=== PATIENT | male | born 1970 | race Caucasian/White ===

== ENCOUNTER 2023-06-02 13:36 | Emergency (ER) | payer MEDICAID ==
[2023-06-02 13:58] VITALS: TEMP 98
[2023-06-02] MEDS ORDERED: solu-MEDROL ONE (14:14)
[2023-06-02] MEDS ORDERED: Sterile H2O 10 ml IJ ONE (14:14)
[2023-06-02] MEDS: solu-MEDROL 125 MG, Sterile H2O 10 ml 2 ML IV ONE (14:15)
--- NOTE | 2023-06-02 14:16 | ERPHSYRPT ---
- History of Present Illness Time Seen by Provider: 06/02/23 13:40 Source: patient Exam Limitations: no limitations Patient Subjective Stated Complaint: C/O cough and SOB for about a week that is worse today Triage Nursing Assessment: Patient ambulated back to ER. He is SOB. Patient has a dry, forceful, non-productive cough; states it is productive at home. He is flushed. Right lung base diminished. Physician History: 53 years old male with history of heavy tobacco use presented in the ER with 1 week history of cough congestion, subjective feeling of fever chills and shortness of breath which is lately getting worse. Patient reports getting short of breath with minimal activity and coughing up green sputum moderate in amount with generalized chest soreness. Denies any known sick contact. Reports symptoms started initially as a URI and gradually involve the lungs. Patient is tachypneic on presentation with loud wheezing and decreased air movement. Allergies/Adverse Reactions: azithromycin [From Zithromax] Adverse Reaction (Verified 06/02/23 16:24) Hx Influenza Vaccination/Date Given: No Hx Pneumococcal Vaccination/Date Given: No Travel Risk - International Travel Have you traveled outside of the country in past 3 weeks: No - Coronavirus Screening Are you exhibiting any of the following symptoms?: Yes Symptoms: Fever, Cough: New Onset, Shortness of Breath Close contact with a COVID-19 positive Pt in past 14-21 Days: No - Vaccine Status Have you recieved a Covid-19 vaccination: No - Review of Systems Constitutional: Fever, Chills, Fatigue Eyes: No Symptoms Ears, Nose, & Throat: Nose Congestion Respiratory: Cough, Dyspnea, Wheezing Cardiac: No Symptoms Abdominal/Gastrointestinal: No Symptoms Genitourinary Symptoms: No Symptoms Musculoskeletal: No Symptoms Neurological: No Symptoms Psychological: No Symptoms Endocrine: No Symptoms Hematologic/Lymphatic: No Symptoms Immunological/Allergic: No Symptoms - Past Medical History Pertinent Past Medical History: Yes Other Medical History: basil and melanoma CA - Past Surgical History Past Surgical History: Yes Other Surgical History: basil and melanoma CA removal - Social History Smoking Status: Current every day smoker How long have you smoked: 37 years Exposure to second hand smoke: No Drug Use: none Patient Lives Alone: No - Nursing Vital Signs Nursing Vital Signs: Initial Vital Signs Pulse Rate 74 06/02/23 13:38 Respiratory Rate 22 06/02/23 13:38 Blood Pressure 147/116 06/02/23 13:38 O2 Sat by Pulse Oximetry 99 06/02/23 13:38 Pain Scale Pain Intensity 0 - Physical Exam General Appearance: no apparent distress, alert Eye Exam: PERRL/EOMI Ears, Nose, Throat Exam: hearing grossly normal, pharyngeal erythema Neck Exam: normal inspection, non-tender, supple, full range of motion Respiratory Exam: diminished breath sounds, accessory muscle use, rhonchi, wheezing Cardiovascular/Chest Exam: normal heart sounds, regular rate/rhythm Abdominal/Gastrointestinal Exam: soft, normal bowel sounds, No tenderness Extremity Exam: non-tender, normal range of motion Neurologic Exam: alert, oriented x 3, cooperative Skin Exam: normal color SpO2 Interpretation: normal SpO2: 99 O2 Delivery: Room Air - Course EKG Interpreted by Me: RATE (76), Sinus Rhythm, NORMAL AXIS, NORMAL INTERVALS, Non-specific ST Changes Ordered Tests: Active Orders 24 hr Category Date Time Status Cold Molding Press Operator STAT Care 06/02/23 13:49 Active EKG-ER Only STAT Care 06/02/23 13:48 Active Oxygen-ED Only Nasal Cannula 2 lpm Care 06/02/23 13:48 Active CHEST 1 VIEW (PORTABLE) Stat Exams 06/02/23 13:49 Taken BLOOD CULTURE Stat Lab 06/02/23 14:13 Received CBC W DIFF Stat Lab 06/02/23 14:00 Completed CMP Stat Lab 06/02/23 14:00 Completed Lactic Acid Stat Lab 06/02/23 13:48 Ordered MAGNESIUM Stat Lab 06/02/23 14:00 Completed NT PRO BNPII Stat Lab 06/02/23 14:00 Completed TROPONIN Q4H Lab 06/02/23 14:00 Completed TROPONIN Q4H Lab 06/02/23 18:00 Ordered TROPONIN Q4H Lab 06/02/23 22:00 Ordered Respiratory Therapy Assessment DAILY RT 06/02/23 14:25 Active Medication Summary Discontinued Medications Generic Name Dose Route Start Last Admin Trade Name Freq PRN Reason Stop Dose Admin Albuterol/Ipratropium 3 ml 06/02/23 13:48 06/02/23 14:22 Ipratropium/Albuterol Sulfate 3 Ml Ampul.Neb IH 06/02/23 13:49 3 ml STAT ONE Administration Albuterol/Ipratropium Confirm 06/02/23 14:21 Ipratropium/Albuterol Sulfate 3 Ml Ampul.Neb Administered 06/02/23 14:22 Dose 3 ml IH .STK-MED ONE Methylprednisolone Sodium 0 mg 06/02/23 13:48 06/02/23 14:15 Succinate 125 mg/ Sterile IV 06/02/23 13:49 125 mg Water 2 ml STAT ONE Administration Azithromycin 500 mg in 250 mls @ 250 mls/hr 06/02/23 15:27 06/02/23 16:10 Zithromax 500 Mg/ 250 Ml Nacl Premix IV 06/02/23 16:26 0 mls/hr STAT STA 0 mls/hr Infusion Ceftriaxone Sodium/Dextrose 2 g in 50 mls @ 100 mls/hr 06/02/23 15:27 06/02/23 15:40 Rocephin 2 Gm-D5w 50ml Bag IV 06/02/23 15:56 100 mls/hr STAT STA 100 mls/hr Administration Azithromycin Confirm 06/02/23 15:30 Zithromax 500 Mg/ 250 Ml Nacl Premix Administered 06/02/23 15:31 Dose 500 mg in 250 mls @ ud IV .STK-MED ONE Ceftriaxone Sodium/Dextrose Confirm 06/02/23 15:30 Rocephin 2 Gm-D5w 50ml Bag Administered 06/02/23 15:31 Dose 2 g in 50 mls @ ud IV .STK-MED ONE Methylprednisolone Sodium Succinate Confirm 06/02/23 14:14 Methylprednis Sod Succ 125 Mg/2 Ml Vial Administered 06/02/23 14:15 Dose 125 mg .ROUTE .STK-MED ONE Oseltamivir Phosphate 75 mg 06/02/23 15:20 06/02/23 15:25 Oseltamivir 75 Mg Cap PO 06/02/23 15:21 75 mg STAT ONE Administration Oseltamivir Phosphate Confirm 06/02/23 15:24 Oseltamivir 75 Mg Cap Administered 06/02/23 15:25 Dose 75 mg PO .STK-MED ONE Sterile Water Confirm 06/02/23 14:14 Water For Injection,Sterile 10 Ml Vial Administered 06/02/23 14:15 Dose 10 ml IJ .STK-MED ONE Lab/Rad Data: Laboratory Result Diagrams 06/02/23 14:00 06/02/23 14:00 Laboratory Results 06/02/23 06/02/23 06/02/23 Range/Units 14:13 14:00 14:00 WBC (4.0-10.5) x10^3/uL RBC (4.1-5.6) x10^6/uL Hgb (12.5-18.0) g/dL Hct (42-50) % MCV (78-100) fL MCH (26-32) pg MCHC (32-36) g/dL RDW (11.5-14.0) % Plt Count (150-450) x10^3/uL MPV (7.5-11.0) fL Gran % (36.0-66.0) % Immature Gran % (Auto) (0.00-0.4) % Nucleat RBC Rel Count (0.00-0.1) % Eos # (Auto) (0-0.5) x10^3/uL Immature Gran # (Auto) (0.00-0.03) x10^3u/L Absolute Lymphs (auto) (1.0-4.6) x10^3/uL Absolute Monos (auto) (0.0-1.3) x10^3/uL Absolute Nucleated RBC (0.00-0.01) x10^3u/L Lymphocytes % (24.0-44.0) % Monocytes % (0.0-12.0) % Eosinophils % (0.00-5.0) % Basophils % (0.0-0.4) % Absolute Granulocytes (1.4-6.9) x10^3/uL Basophils # (0-0.4) x10^3/uL Sodium 138 (137-145) mmol/L Potassium 3.5 (3.5-5.1) mmol/L Chloride 109 H (98-107) mmol/L Carbon Dioxide 20 L (22-30) mmol/L Anion Gap 12.1 (5-15) MEQ/L BUN 12 (9-20) mg/dL Creatinine 0.94 (0.66-1.25) mg/dL Estimated GFR 97.5 ML/MIN Glucose 96 (74-106) mg/dL Calcium 9.0 (8.4-10.2) mg/dL Magnesium 2.3 (1.6-2.3) mg/dL Total Bilirubin 0.60 (0.2-1.3) mg/dL AST 25 (17-59) U/L ALT 14 (0-50) U/L Alkaline Phosphatase 73 (38-126) U/L Troponin I < 0.012 (0.000-0.034) ng/mL NT-Pro-B Natriuret Pep < 20.0 (<300) pg/mL Serum Total Protein 7.8 (6.3-8.2) g/dL Albumin 4.4 (3.5-5.0) g/dL Influenza Type A Ag NEGATIVE (NEGATIVE) Influenza Type B Ag POSITIVE A (NEGATIVE) RSV (PCR) NEGATIVE (NEGATIVE) SARS-CoV-2 (PCR) NEGATIVE (NEGATIVE) 06/02/23 Range/Units 14:00 WBC 4.5 (4.0-10.5) x10^3/uL RBC 5.30 (4.1-5.6) x10^6/uL Hgb 15.7 (12.5-18.0) g/dL Hct 47.3 (42-50) % MCV 89.2 (78-100) fL MCH 29.6 (26-32) pg MCHC 33.2 (32-36) g/dL RDW 13.2 (11.5-14.0) % Plt Count 228 (150-450) x10^3/uL MPV 9.5 (7.5-11.0) fL Gran % 58.1 (36.0-66.0) % Immature Gran % (Auto) 0.2 (0.00-0.4) % Nucleat RBC Rel Count 0.0 (0.00-0.1) % Eos # (Auto) 0.04 (0-0.5) x10^3/uL Immature Gran # (Auto) 0.01 (0.00-0.03) x10^3u/L Absolute Lymphs (auto) 1.44 (1.0-4.6) x10^3/uL Absolute Monos (auto) 0.37 (0.0-1.3) x10^3/uL Absolute Nucleated RBC 0.00 (0.00-0.01) x10^3u/L Lymphocytes % 32.3 (24.0-44.0) % Monocytes % 8.3 (0.0-12.0) % Eosinophils % 0.9 (0.00-5.0) % Basophils % 0.2 (0.0-0.4) % Absolute Granulocytes 2.59 (1.4-6.9) x10^3/uL Basophils # 0.01 (0-0.4) x10^3/uL Sodium (137-145) mmol/L Potassium (3.5-5.1) mmol/L Chloride (98-107) mmol/L Carbon Dioxide (22-30) mmol/L Anion Gap (5-15) MEQ/L BUN (9-20) mg/dL Creatinine (0.66-1.25) mg/dL Estimated GFR ML/MIN Glucose (74-106) mg/dL Calcium (8.4-10.2) mg/dL Magnesium (1.6-2.3) mg/dL Total Bilirubin (0.2-1.3) mg/dL AST (17-59) U/L ALT (0-50) U/L Alkaline Phosphatase (38-126) U/L Troponin I (0.000-0.034) ng/mL NT-Pro-B Natriuret Pep (<300) pg/mL Serum Total Protein (6.3-8.2) g/dL Albumin (3.5-5.0) g/dL Influenza Type A Ag (NEGATIVE) Influenza Type B Ag (NEGATIVE) RSV (PCR) (NEGATIVE) SARS-CoV-2 (PCR) (NEGATIVE) - Progress Progress: re-examined Air Movement: good Progress Note: 06/02/23 16:33 53 years old is evaluated for fever chills with cough and difficulty breathing. Patient was tachypneic, wheezing all over and decreased air movement on presentation although he was maintaining oxygen saturation in upper 90s. He is placed on 2 L oxygen just for comfort, given DuoNeb and Solu-Medrol, on reevaluation he is feeling much better. Workup showed normal white count, fairly unremarkable chemistries, negative troponins. EKG did not show any acute ST elevations. Patient has a positive influenza B, started on Tamiflu. Chest x-ray reviewed by me revealed bilateral airspace disease. I have given him Rocephin and also ordered Zithromax but patient got nauseated and flushing after start of Zithromax which was stopped. I will give him Levaquin. I have offered him observation admission but patient does not want to stay in the hospital at all and wants to go home as he is feeling much better. Patient is later on taken off of oxygen and is maintaining around 97% and also ambulated in the ER with saturation dropping no less than 94% without any dyspnea. I would give him Levaquin albuterol inhaler and Tamiflu to go home and outpatient follow-up recommended. Discussed signs symptoms of worsening needing return to ER which she seems understanding. Stable for discharge. Blood Culture(s) Obtained: Yes Antibiotics given: Yes Counseled pt/family regarding: lab results, diagnosis, need for follow-up, rad results, smoking cessation Medical Desision Making - Independent Historian Additional History obtained from: Spouse, Child - Diagnostic Testing Diagnostic test were ordered, analyzed, and reviewed by me: Yes Radiological Interpretation: Interpreted by me, Reviewed by me - Risk of complications The pt has a mod risk of morbidity or mortality based on: Need for prescription drug management - Departure Departure Disposition: Home Clinical Impression: Influenza, Pneumonia Condition: Stable Critical Care Time: No Referrals: DOCTOR,NO FAMILY [Primary Care Provider] - Follow up with PCP 2 days Instructions: Pneumonia in adults, Flu, Adult (DC) Additional Instructions: Do not smoke. Use inhaler as recommended. Follow-up with primary care physician for reevaluation. Take Tylenol/ibuprofen as needed for fever or chills, body aches etc. Return to ER for worsening cough difficulty breathing, persistent high-grade fever etc. Prescriptions: Albuterol Sulfate [Albuterol Sulfate Hfa] 8.5 gm IH Q6H PRN 7 Days #1 inh PRN Reason: Cough Levofloxacin [Levaquin 500 MG Tablet] 500 mg PO DAILY 10 Days #10 tablet Oseltamivir 75 mg [Tamiflu 75MG Capsule] 75 mg PO BID #10 cap
[2023-06-02] MEDS ORDERED: DUONEB 0.5-3 MG/3 ml Neb IH ONE (14:21)
[2023-06-02] MEDS: DUONEB 0.5-3 MG/3 ml Neb IH ONE (14:22)
[2023-06-02 14:32] LABS: Absolute Neutrophil Ct (ANC) 2.59 x10^3/uL (1.4-6.9); BASOPHIL % 0.2 % (0.0-0.4); Basophil (Absolute #) 0.01 x10^3/uL (0-0.4); Eosinophil % 0.9 % (0.00-5.0); Eosinophil (Absolute #) 0.04 x10^3/uL (0-0.5); Hematocrit 47.3 % (42-50); Hemoglobin 15.7 g/dL (12.5-18.0); IMMATURE GRAN # 0.01 x10^3u/L (0.00-0.03); IMMATURE GRAN % 0.2 % (0.00-0.4); Lymphocyte (Absolute #) 1.44 x10^3/uL (1.0-4.6); Lymphocytes % 32.3 % (24.0-44.0); Mean Cell Volume 89.2 fL (78-100); Mean Corpuscular Hemoglobin 29.6 pg (26-32); Mean Corpuscular Hgb Concent. 33.2 g/dL (32-36); Mean Platelet Volume 9.5 fL (7.5-11.0); Monocyte (Absolute #) 0.37 x10^3/uL (0.0-1.3); Monocytes % 8.3 % (0.0-12.0); Neutrophil % 58.1 % (36.0-66.0); Platelet Count 228 x10^3/uL (150-450); Red Cell Distribution Width 13.2 % (11.5-14.0); White Blood Count 4.5 x10^3/uL (4.0-10.5)
[2023-06-02 14:38] LABS: ALBUMIN 4.4 g/dL (3.5-5.0); ANION GAP 12.1 MEQ/L (5-15); BILIRUBIN,TOTAL 0.6 mg/dL (0.2-1.3); Creatinine 1 0.94 mg/dL (0.66-1.25); EST GLOMERULAR FILTRATION RATE 97.5 ML/MIN; MAGNESIUM 2.3 mg/dL (1.6-2.3); Potassium 3.5 mmol/L (3.5-5.1); Total Protein 7.8 g/dL (6.3-8.2)
[2023-06-02 14:49] LABS: NT PRO BNPII < 20.0 pg/mL (<300); TROPONIN < 0.012 ng/mL (0.000-0.034)
[2023-06-02 15:02] LABS: INFLUENZA A NEGATIVE (NEGATIVE); RESPIRATORY SYNCTIAL VIRUS NEGATIVE (NEGATIVE); SARS-CoV-2 Xpert Express NEGATIVE (NEGATIVE)
[2023-06-02 15:05] LABS: INFLUENZA B POSITIVE (NEGATIVE)
[2023-06-02] MEDS ORDERED: Tamiflu 75MG Capsule PO ONE (15:24)
[2023-06-02] MEDS: Tamiflu 75MG Capsule PO ONE (15:25)
[2023-06-02] MEDS ORDERED: Zithromax 500 MG/ 250 ML NaCl Premix 500 MG/250 ML IVPB IV ONE (15:30)
[2023-06-02] MEDS ORDERED: ROCEPHIN 2 Gm-D5w 50ML BAG** 2 G/50 ML IVPB IV ONE (15:30)
[2023-06-02] MEDS: ROCEPHIN 2 Gm-D5w 50ML BAG** 2 G/50 ML IVPB IV STA (15:40)
[2023-06-02] MEDS: Zithromax 500 MG/ 250 ML NaCl Premix 500 MG/250 ML IVPB IV STA (16:05)
[2023-06-02 16:36] VITALS: O2SAT 99
[2023-06-02 16:56] VITALS: BP 139/97; PULSE 77; RESP 13
--- NOTE | 2023-06-02 20:43 | XRAY ---
Indication: Short of breath. Comparison: None Portable chest hyperinflated and clear. Heart and mediastinal structures within normal limits. Bony thorax intact with mild degenerative changes. Impression: Nonacute hyperinflated chest.
== END 2023-06-02 17:25 | disposition home or self-care (01) ==
LOC: ED 13:36
DX: J10.00 Influenza due to other identified influenza virus with unspecified type of pneumonia (principal); R05.1 Acute cough; R06.02 Shortness of breath; Z28.310 Unvaccinated for COVID-19; Z72.0 Tobacco use
CPT/HCPCS: 0241U; 36415; 71045; 80053; 83735; 83880; 84484; 85025; 87040; 93005; 93041; 94640; 96374; 99284; J0456; J0696; J2930; A9270-GY

== ENCOUNTER 2024-02-22 05:43 | Emergency (ER) | payer MEDICAID ==
[2024-02-22 05:56] VITALS: RESP 18; TEMP 98.3; O2SAT 94
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
[2024-02-22 06:25] LABS: Group A Strep NOT DETECTED (NEGATIVE)
[2024-02-22] MEDS ORDERED: Sterile H2O 10 ml IJ ONE (06:27)
[2024-02-22] MEDS ORDERED: Rocephin 1000 MG INJ ONE (06:27)
[2024-02-22] MEDS ORDERED: solu-MEDROL ONE (06:27)
[2024-02-22] MEDS: solu-MEDROL 125 MG, Sterile H2O 10 ml 2 ML IM ONE (06:32)
[2024-02-22] MEDS: Rocephin 1000 MG INJ IM ONE (06:33)
[2024-02-22 06:38] VITALS: BP 137/81; PULSE 77
[2024-02-22 06:38] LABS: INFLUENZA A NEGATIVE (NEGATIVE); INFLUENZA B NEGATIVE (NEGATIVE); RESPIRATORY SYNCTIAL VIRUS NEGATIVE (NEGATIVE); SARS-CoV-2 Xpert Express NEGATIVE (NEGATIVE)
--- NOTE | 2024-02-22 09:29 | XRAY ---
Indication: Cough. Comparison: June 16, 2023 Portable apical lordotic chest unchanged again hyperinflated and clear. Heart not enlarged. Bony thorax intact again with mild degenerative changes. No new/acute findings.
== END 2024-02-22 06:49 | disposition home or self-care (01) ==
LOC: ED 05:43
DX: R91.8 Other nonspecific abnormal finding of lung field (principal); J02.9 Acute pharyngitis, unspecified; R51.9 Headache, unspecified; R05.1 Acute cough; M79.10 Myalgia, unspecified site; R06.2 Wheezing; Z79.52 Long term (current) use of systemic steroids; Z79.891 Long term (current) use of opiate analgesic; Z79.899 Other long term (current) drug therapy; Z72.0 Tobacco use
CPT/HCPCS: 0241U; 71045; 87651; 96372; 99284; 99283; J0696; J2919